=== PATIENT | female | born 1945 | race Caucasian/White ===

== ENCOUNTER 2023-07-20 13:21 | Outpatient (AMB) | payer MEDICARE, BC, SELFPAY ==
--- NOTE | 2023-07-20 13:29 | MHC.OFFVIS ---
Intake Vital Signs 07/20/23 13:30 Height 5 ft 1.5 in Weight 130 lb BMI 24.2 Pulse 92 Pulse Source Pulse Oximeter Pulse Oximetry (%) 93 Oxygen Delivery Method Room Air Intake Visit Reasons: copd Blood Donor Unit Assistant Required: No Allergies fluticasone [From Advair Diskus] Adverse Reaction (Severe, Verified 07/20/23 13:36) Swelling salmeterol [From Advair Diskus] Adverse Reaction (Severe, Verified 07/20/23 13:36) Swelling simvastatin Adverse Reaction (Severe, Verified 07/20/23 13:32) Dizziness steroids Adverse Reaction (Severe, Uncoded 07/20/23 13:32) Hives HPI HPI Comments History of Present Illness Details The patient is here for pulmonary evaluation. The patient is a 78 year woman with a known history of COPD presenting with worsening respiratory symptoms. Apparently the patient does have extensive emphysema. Last CT scan of the chest was back in May 2023 at [facility]. Will personally review the images. Her emphysema is significant and primarily upper lung zones. Preserving minimally the bases. She did have PFTs back in 2021 which we personally reviewed from [facility] demonstrating severe COPD with an FEV1 of 42% evidence of air trapping and also significant diffusion impairment down to 32% predicted couple years ago. The patient has been Anoro. She seems to have a bad reaction to inhaled steroids per the patient. in therefore, she has been on a long-acting LAMA/LABA, Anoro. She tolerates this well. She also has a nebulizer. She does complaint of cough at times productive in nature. Currently she has not on prednisone. She has a hard time with any activity because of the shortness of breath. Even at rest. On arrival she was saturating 93%. We did taken for 6 minute walk test quickly upon arrival and she did desaturate down to 86% with minimal activity. She was placed on 2 L and with assistance with breathing techniques she was able to maintain a pulse ox of 94% on 2 L continuous. The patient was asking about a portable oxygen concentrator. Although, she is a mouth breather. I did explain to her that she needs to work on her breathing technique breathing through her nose personally breathing and will go ahead and perform a from 7 device trial to see if she qualifies for 1. in the meantime the patient understands that her oxygen requirements are very important and is going to help her overall. The patient also is in need of pulmonary rehabilitation. Will have to request pulmonary function studies will also request a venous gas and then she can follow through with pulmonary rehab at [facility]. We also talked about the fact that she does have a small pulmonary nodules appears to be stable that will need follow-up in the future. she is here with her brother and also mentions that there is although family members with underlying lung disease. She quit smoking back in the early 2 thousands. Not sure about any other fumes or toxins. Still her emphysema is extensive and will be reasonable just to check an alpha-1 antitrypsin deficiency phenotype. Therefore we will go ahead and swab her today for DNA testing. [facility] Medical History (Updated 07/20/23 @ 20:47 by Inderjit Chavez MD) Pulmonary nodule Dyspnea Chronic respiratory failure COPD (chronic obstructive pulmonary disease) Social History (Updated 07/20/23 @ 13:37 by RAGHAVENDRA Oneil) Patient Tobacco Use Status: Former Tobacco user Tobacco use type: Cigarette Years Smoked: 20+ Years Review of Systems Const Denies fever(s), Reports headache(s) and Denies weight loss Eyes Reports no additional complaints ENT Reports headache(s) and Reports nasal discharge Card Denies chest pain, Reports dyspnea and Reports dyspnea on exertion Resp Reports chest congestion, Reports cough, Reports dyspnea, Reports dyspnea on exertion and Reports wheezing GI Reports no additional complaints Musc Reports no additional complaints Skin/Breast Denies rash Neuro Reports headache(s) and Reports memory loss Psych Reports memory loss Long/Lymph Denies lymphadenopathy Aller/Immun Reports wheezing Physical Exam Vital Signs: Last Vital Signs Pulse 92 07/20/23 13:30 Pulse Ox 93 07/20/23 13:30 Oxygen Delivery Method Room Air 07/20/23 13:30 BMI result Body Mass Index 24.2 Const General: comfortable HEENT Head: Yes normocephalic Neck Neck: Yes supple Chest Chest palpation & inspection: normal inspection of the chest Resp Effort & Inspection: normal respiratory effort and prolonged expiratory phase Auscultation: wheezes and diminished lung sounds Cardio Heart sounds: S1 normal heart sound present and S2 normal heart sound present Office Procedures 6 Minute Walk Time:: 14:00 SPO2 % at rest: 95 Pulse at rest: 87 SPO2 % during excercise: 86 Pulse during excercise: 99 SPO2 % after excercise: 97 Pulse after excercise: 90 Distance in yards walked: 200 Abiodun Score: 6 Performance Observations:: Leana walked on level ground without assistance, she walked on room air for 60 yards before her SPO2 decreased to 86%. O2 started at 2 lpm and her SPO2 recovered to 95%, she maintained her SPO2 95-97% for the remainder of the walk on 2 lpm. [id number] - 6 Minute Walk Results Reviewed Results Reviewed: Personally reviewed CTA with extensive emphysema, pulmonary nodule, post op changes PFTs: 2021: severe COPD, severe diffusion impairement Assessment & Plan Assessment & Plan (1) Chronic respiratory failure: Code(s): J96.10 - Chronic respiratory failure, unspecified whether with hypoxia or hypercapnia Qualifiers: Respiratory failure complication: hypoxia Qualified Code(s): J96.11 - Chronic respiratory failure with hypoxia (2) COPD (chronic obstructive pulmonary disease): Code(s): J44.9 - Chronic obstructive pulmonary disease, unspecified Qualifiers: COPD type: emphysema Emphysema type: centrilobular Qualified Code(s): J43.2 - Centrilobular emphysema (3) Dyspnea: Code(s): R06.00 - Dyspnea, unspecified Qualifiers: Dyspnea type: shortness of breath Qualified Code(s): R06.02 - Shortness of breath (4) Pulmonary nodule: Code(s): R91.1 - Solitary pulmonary nodule Plan start oxygen 2L/min with activity and sleep requesting conserving device trial PFTs and blood gas start [place] [facility] [place] Anoro start Azithromycin MWF Consider Daliresp Alpha 1 anti trypsin testing Will need a CT chest 05/2024 F/U 2 months Orders: Orders AMB 6 minute walk Today R06.02 - Shortness of breath Pulmonary Rehab Today J44.9 - Chronic obstructive pulmonary disease, unspecified, J96.10 - Chronic respiratory failure, unspecified whether with hypoxia or hypercapnia PFT pulmonary function test Today J44.9 - Chronic obstructive pulmonary disease, unspecified, J96.10 - Chronic respiratory failure, unspecified whether with hypoxia or hypercapnia Venous Blood Gas Today J44.9 - Chronic obstructive pulmonary disease, unspecified, J96.10 - Chronic respiratory failure, unspecified whether with hypoxia or hypercapnia Medications: New ipratropium bromide administer into each nostril 2 sprays intranasal TID PRN 15 mL 6RF allergy symptoms azithromycin Take 1 tablet on Wednesday/Wednesday/Wednesday 250 mg PO 3XW 28 days 12 tabs 3RF K21.9 - Gastro-esophageal reflux disease without esophagitis Coding Level of Care Code New Pt Level 5 (65861) Diagnoses Chronic respiratory failure with hypoxia J96.11 Respiratory failure complication: hypoxia Centrilobular emphysema J43.2 COPD type: emphysema Emphysema type: centrilobular Shortness of breath R06.02 Dyspnea type: shortness of breath Pulmonary nodule R91.1 CPT Codes Coding ([id number]) Time Spent (min) 50
[2023-07-20 13:30] VITALS: PULSE 92; O2SAT 93; BMI 24.2
[2023-07-20 15:03] VITALS: PULSE 87; O2SAT 95
== END 2023-07-20 14:32 | disposition home or self-care (01) ==
PROVIDERS: PCP Internal Medicine; Referring Provider Internal Medicine; Visit Provider Hospitalist
DX: J44.9 Chronic obstructive pulmonary disease, unspecified (principal)
CPT/HCPCS: 94618; 99204

== ENCOUNTER → 2023-07-20 13:21 | Outpatient (BNVA) | payer MEDICARE, BC, SELFPAY | PROVIDERS: PCP Internal Medicine; Referring Provider Internal Medicine; Visit Provider Hospitalist | DX: J43.2 Centrilobular emphysema (principal); J96.11 Chronic respiratory failure with hypoxia; R91.1 Solitary pulmonary nodule | CPT/HCPCS: 94618; 99202 ==

== ENCOUNTER 2023-07-24 10:28 | Outpatient (REF) | payer MEDICARE, BC, SELFPAY ==
[2023-07-24 10:08] VITALS: PULSE 80; RESP 16; O2SAT 98
--- NOTE | 2023-07-24 13:31 | PFT_ITS ---
Indication: COPD Spirometry [FEV1 to FVC 39%; FEV1 0.67 L; FVC 1.7 L. No significant response to bronchodilators noted. Maximum voluntary ventilation 34% predicted.] Lung Volumes [Lung colleagues could not be achieved due to the fact the patient could not perform the maneuvers] Diffusion Capacity [DLCO 36% predicted] Comparisons [None] Interpretation [There has an obstructive ventilatory defect consistent with severe COPD. No significant response to bronchodilators noted. Severe decrease in the maximum voluntary ventilation secondary to deconditioning. Again, lung volumes could not be achieved. The patient does have a severe diffusion impairment. Clinical correlation warranted.] MTDD
== END 2023-07-24 10:29 | disposition home or self-care (01) ==
LOC: HO.RESP 10:28
PROVIDERS: PCP Internal Medicine; Visit Provider Hospitalist
DX: J44.9 Chronic obstructive pulmonary disease, unspecified (principal); J96.10 Chronic respiratory failure, unspecified whether with hypoxia or hypercapnia
CPT/HCPCS: 94010; 94640; 94727; 94729

== ENCOUNTER → 2023-07-24 13:31 | Outpatient (BNV) | payer MEDICARE, BC, SELFPAY | PROVIDERS: PCP Internal Medicine; Visit Provider Hospitalist | DX: J44.9 Chronic obstructive pulmonary disease, unspecified (principal) | CPT/HCPCS: 94060; 94729 ==

== ENCOUNTER 2023-10-18 13:49 | Outpatient (AMB) | payer MEDICARE, BC, SELFPAY ==
--- NOTE | 2023-10-18 13:55 | MHC.OFFVIS ---
Vital Signs 10/18/23 13:58 Height 5 ft 1 in Weight 133 lb 1 oz BMI 25.1 BP 116/72 Blood Pressure Location Lt brachial Position Sitting Respiration 16 Pulse 86 Pulse Source Pulse Oximeter Pulse Oximetry (%) 98 Oxygen Delivery Method Room Air Intake Visit Reasons: copd Allergies fluticasone [From Advair Diskus] Adverse Reaction (Severe, Verified 10/18/23 13:55) Swelling salmeterol [From Advair Diskus] Adverse Reaction (Severe, Verified 10/18/23 13:55) Swelling simvastatin Adverse Reaction (Severe, Verified 10/18/23 13:55) Dizziness steroids Adverse Reaction (Severe, Uncoded 07/20/23 13:32) Hives HPI Comments Details: The patient is a 78 year woman with a known history of COPD presenting with worsening respiratory symptoms. Apparently the patient does have extensive emphysema. Last CT scan of the chest was back in May 2023 at [facility]. Will personally review the images. Her emphysema is significant and primarily upper lung zones. Preserving minimally the bases. She did have PFTs back in 2021 which we personally reviewed from [facility] demonstrating severe COPD with an FEV1 of 42% evidence of air trapping and also significant diffusion impairment down to 32% predicted couple years ago. The patient has been Anoro. She seems to have a bad reaction to inhaled steroids per the patient. in therefore, she has been on a long-acting LAMA/LABA, Anoro. She tolerates this well. She also has a nebulizer. She does complaint of cough at times productive in nature. Currently she has not on prednisone. She has a hard time with any activity because of the shortness of breath. Even at rest. On arrival she was saturating 93%. We did taken for 6 minute walk test quickly upon arrival and she did desaturate down to 86% with minimal activity. She was placed on 2 L and with assistance with breathing techniques she was able to maintain a pulse ox of 94% on 2 L continuous. The patient was asking about a portable oxygen concentrator. Although, she is a mouth breather. I did explain to her that she needs to work on her breathing technique breathing through her nose personally breathing and will go ahead and perform a from 7 device trial to see if she qualifies for 1. in the meantime the patient understands that her oxygen requirements are very important and is going to help her overall. The patient also is in need of pulmonary rehabilitation. Will have to request pulmonary function studies will also request a venous gas and then she can follow through with pulmonary rehab at [facility]. We also talked about the fact that she does have a small pulmonary nodules appears to be stable that will need follow-up in the future. she is here with her brother and also mentions that there is although family members with underlying lung disease. She quit smoking back in the early 2 thousands. Not sure about any other fumes or toxins. Still her emphysema is extensive and will be reasonable just to check an alpha-1 antitrypsin deficiency phenotype. Therefore we will go ahead and swab her today for DNA testing. 10/18/2023 the patient is here for a pulmonary follow-up visit. She has been struggling with her oxygen. She can not handle the 2 L continuous. She was able to tolerate the conserving device and therefore will go ahead and start her on 2 L pulse with a portable oxygen concentrator. This will provide better portability outside of the home. I will request a portable oxygen concentrator through her [employer] company, [employer]. In addition to that she has been using her Anoro inhaler. She is wondering if there is anything better than that. I did recommend she can stay on the Anoro specially since she has had adverse effects to other inhalers. I do believe that the addition of other medications such as using a nebulizer and or using Daliresp may be helpful for her specially with a component of chronic bronchitis. The patient would like to hold off on the Daliresp but she will start using the nebulizer at least once a day in the afternoons. The patient will be starting pulmonary rehabilitation tomorrow which would be good. [facility] Medical History (Updated 10/18/23 @ 20:55 by Inderjit Chavez MD) Pulmonary nodule Dyspnea Chronic respiratory failure COPD (chronic obstructive pulmonary disease) Social History (Updated 07/20/23 @ 13:37 by RAGHAVENDRA Oneil) Patient Tobacco Use Status: Former Tobacco user Tobacco use type: Cigarette Years Smoked: 20+ Years Review of Systems Const Denies fever(s), Reports headache(s) and Denies weight loss Eyes Reports no additional complaints ENT Reports headache(s) and Reports nasal discharge Card Denies chest pain, Reports dyspnea and Reports dyspnea on exertion Resp Reports chest congestion, Reports cough, Reports dyspnea, Reports dyspnea on exertion and Reports wheezing GI Reports no additional complaints Musc Reports no additional complaints Skin/Breast Denies rash Neuro Reports headache(s) and Reports memory loss Psych Reports memory loss Long/Lymph Denies lymphadenopathy Aller/Immun Reports wheezing Physical Exam Vital Signs: Last Vital Signs Pulse 86 10/18/23 13:58 Resp 16 10/18/23 13:58 BP 116/72 10/18/23 13:58 Pulse Ox 98 10/18/23 13:58 Oxygen Delivery Method Room Air 10/18/23 13:58 BMI result Body Mass Index 25.1 Const General: comfortable HEENT Head: Yes normocephalic Neck Neck: Yes supple Chest Chest palpation & inspection: normal inspection of the chest Resp Effort & Inspection: normal respiratory effort and prolonged expiratory phase Auscultation: no wheezes and diminished lung sounds Cardio Heart sounds: S1 normal heart sound present and S2 normal heart sound present Assessment & Plan Assessment & Plan (1) Chronic respiratory failure: Code(s): J96.10 - Chronic respiratory failure, unspecified whether with hypoxia or hypercapnia Category: Medical Qualifiers: Respiratory failure complication: hypoxia Qualified Code(s): J96.11 - Chronic respiratory failure with hypoxia (2) COPD (chronic obstructive pulmonary disease): Comment: FEV1 0.67L Code(s): J44.9 - Chronic obstructive pulmonary disease, unspecified Category: Medical Qualifiers: COPD type: emphysema Emphysema type: centrilobular Qualified Code(s): J43.2 - Centrilobular emphysema (3) Dyspnea: Code(s): R06.00 - Dyspnea, unspecified Category: Medical Qualifiers: Dyspnea type: shortness of breath Qualified Code(s): R06.02 - Shortness of breath (4) Pulmonary nodule: Code(s): R91.1 - Solitary pulmonary nodule Category: Medical Plan change oxygen 2L/pulse with activity, requesting POC for better portability outside of the home should also use 2L/min while sleeping requesting conserving device trial Bloodgas for the next visit start [place]monary [place] [facility] [place] Anoro nebulizer therapy stopped Azithromycin MWF Consider Daliresp Alpha 1 anti trypsin testing-normal M/M Will need a CT chest 05/2024 F/U 4-6 months Medications: Changed From umeclidinium-vilanterol 62.5-25 mcg/actuation (Anoro Ellipta) 1 ea inhalation DAILY To umeclidinium-vilanterol 62.5-25 mcg/actuation (Anoro Ellipta) 1 ea inhalation DAILY 90 days 3 ea 3RF Coding Level of Care Code Est Pt Level 4 (64709) Diagnoses Chronic respiratory failure with hypoxia J96.11 Respiratory failure complication: hypoxia Centrilobular emphysema J43.2 COPD type: emphysema Emphysema type: centrilobular Shortness of breath R06.02 Dyspnea type: shortness of breath Pulmonary nodule R91.1 Time Spent (min) 18
[2023-10-18 13:58] VITALS: BP 116/72; PULSE 86; RESP 16; O2SAT 98; BMI 25.1
== END 2023-10-18 14:14 | disposition home or self-care (01) ==
PROVIDERS: PCP Internal Medicine; Visit Provider Hospitalist
DX: J43.2 Centrilobular emphysema (principal); J96.11 Chronic respiratory failure with hypoxia; R91.1 Solitary pulmonary nodule
CPT/HCPCS: 99214

== ENCOUNTER → 2023-10-18 13:49 | Outpatient (BNVA) | payer MEDICARE, BC, SELFPAY | PROVIDERS: PCP Internal Medicine; Visit Provider Hospitalist | DX: J43.2 Centrilobular emphysema (principal); J96.11 Chronic respiratory failure with hypoxia; R06.02 Shortness of breath; R91.1 Solitary pulmonary nodule | CPT/HCPCS: 99212 ==

== ENCOUNTER 2024-02-14 13:27 | Outpatient (AMB) | payer MEDICARE, BC, SELFPAY ==
[2024-02-14 13:51] VITALS: PULSE 90; O2SAT 94; BMI 23.8
--- NOTE | 2024-02-14 13:51 | MHC.OFFVIS ---
Vital Signs 02/14/24 13:51 Height 5 ft 1 in Weight 126 lb BMI 23.8 Pulse 90 Pulse Source Pulse Oximeter Pulse Oximetry (%) 94 Oxygen Delivery Method Room Air Intake Visit Reasons: copd Rod Welder Required: No Allergies fluticasone [From Advair Diskus] Adverse Reaction (Severe, Verified 02/14/24 13:53) Swelling salmeterol [From Advair Diskus] Adverse Reaction (Severe, Verified 02/14/24 13:53) Swelling simvastatin Adverse Reaction (Severe, Verified 02/14/24 13:53) Dizziness steroids Adverse Reaction (Severe, Uncoded 02/14/24 13:53) Hives HPI Comments Details: The patient is a 78 year woman with a known history of COPD presenting with worsening respiratory symptoms. Apparently the patient does have extensive emphysema. Last CT scan of the chest was back in May 2023 at [facility]. Will personally review the images. Her emphysema is significant and primarily upper lung zones. Preserving minimally the bases. She did have PFTs back in 2021 which we personally reviewed from [facility] demonstrating severe COPD with an FEV1 of 42% evidence of air trapping and also significant diffusion impairment down to 32% predicted couple years ago. The patient has been Anoro. She seems to have a bad reaction to inhaled steroids per the patient. in therefore, she has been on a long-acting LAMA/LABA, Anoro. She tolerates this well. She also has a nebulizer. She does complaint of cough at times productive in nature. Currently she has not on prednisone. She has a hard time with any activity because of the shortness of breath. Even at rest. On arrival she was saturating 93%. We did taken for 6 minute walk test quickly upon arrival and she did desaturate down to 86% with minimal activity. She was placed on 2 L and with assistance with breathing techniques she was able to maintain a pulse ox of 94% on 2 L continuous. The patient was asking about a portable oxygen concentrator. Although, she is a mouth breather. I did explain to her that she needs to work on her breathing technique breathing through her nose personally breathing and will go ahead and perform a from 7 device trial to see if she qualifies for 1. in the meantime the patient understands that her oxygen requirements are very important and is going to help her overall. The patient also is in need of pulmonary rehabilitation. Will have to request pulmonary function studies will also request a venous gas and then she can follow through with pulmonary rehab at [facility]. We also talked about the fact that she does have a small pulmonary nodules appears to be stable that will need follow-up in the future. she is here with her brother and also mentions that there is although family members with underlying lung disease. She quit smoking back in the early 2 thousands. Not sure about any other fumes or toxins. Still her emphysema is extensive and will be reasonable just to check an alpha-1 antitrypsin deficiency phenotype. Therefore we will go ahead and swab her today for DNA testing. 10/18/2023 the patient is here for a pulmonary follow-up visit. She has been struggling with her oxygen. She can not handle the 2 L continuous. She was able to tolerate the conserving device and therefore will go ahead and start her on 2 L pulse with a portable oxygen concentrator. This will provide better portability outside of the home. I will request a portable oxygen concentrator through her [employer] company, [employer]. In addition to that she has been using her Anoro inhaler. She is wondering if there is anything better than that. I did recommend she can stay on the Anoro specially since she has had adverse effects to other inhalers. I do believe that the addition of other medications such as using a nebulizer and or using Daliresp may be helpful for her specially with a component of chronic bronchitis. The patient would like to hold off on the Daliresp but she will start using the nebulizer at least once a day in the afternoons. The patient will be starting pulmonary rehabilitation tomorrow which would be good. 02/14/2024 the patient is here for a pulmonary follow-up visit. Overall she has been doing well. She is tolerating the Anoro well. She is also using the oxygen with good effect. She does have a portable oxygen concentrator that has been affecting beneficial. She does use it 2 L pulse with activity. The patient now is planning a trip to [place] in 11/07/2024. The family is getting ready. I did give her either in order for her to be able to travel with the [facility]. Although this is in October we can reassess her prior to that trip to make sure that she is still stable. In addition to that she will continue with respiratory therapy. The patient will go ahead and have an overnight oximetry to assess her needs of oxygen while sleeping and also will go ahead and request a blood gas to assess her CO2. The patient also has underlying pulmonary nodules. The last time she had a CT scan back in 06/09/2023. Will go plan to repeat the CT scan sometime in 06/09/2024. [facility] Medical History (Updated 10/18/23 @ 20:55 by Inderjit Chavez MD) Pulmonary nodule Dyspnea Chronic respiratory failure COPD (chronic obstructive pulmonary disease) Social History (Updated 07/20/23 @ 13:37 by RAGHAVENDRA Oneil) Patient Tobacco Use Status: Former Tobacco user Tobacco use type: Cigarette Years Smoked: 20+ Years Review of Systems Const Denies fever(s), Reports headache(s) and Denies weight loss Eyes Reports no additional complaints ENT Reports headache(s) and Reports nasal discharge Card Denies chest pain, Reports dyspnea and Reports dyspnea on exertion Resp Reports chest congestion, Reports cough, Reports dyspnea, Reports dyspnea on exertion and Reports wheezing GI Reports no additional complaints Musc Reports no additional complaints Skin/Breast Denies rash Neuro Reports headache(s) and Reports memory loss Psych Reports memory loss Long/Lymph Denies lymphadenopathy Aller/Immun Reports wheezing Physical Exam Vital Signs: Last Vital Signs Pulse 90 02/14/24 13:51 Pulse Ox 94 02/14/24 13:51 Oxygen Delivery Method Room Air 02/14/24 13:51 BMI result Body Mass Index 23.8 Const General: comfortable HEENT Head: Yes normocephalic Neck Neck: Yes supple Chest Chest palpation & inspection: normal inspection of the chest Resp Effort & Inspection: normal respiratory effort and prolonged expiratory phase Auscultation: no wheezes and diminished lung sounds Cardio Heart sounds: S1 normal heart sound present and S2 normal heart sound present Assessment & Plan Assessment & Plan (1) Chronic respiratory failure: Code(s): J96.10 - Chronic respiratory failure, unspecified whether with hypoxia or hypercapnia Category: Medical Qualifiers: Respiratory failure complication: hypoxia Qualified Code(s): J96.11 - Chronic respiratory failure with hypoxia (2) COPD (chronic obstructive pulmonary disease): Comment: FEV1 0.67L Code(s): J44.9 - Chronic obstructive pulmonary disease, unspecified Category: Medical Qualifiers: COPD type: emphysema Emphysema type: centrilobular Qualified Code(s): J43.2 - Centrilobular emphysema (3) Dyspnea: Code(s): R06.00 - Dyspnea, unspecified Category: Medical Qualifiers: Dyspnea type: shortness of breath Qualified Code(s): R06.02 - Shortness of breath (4) Pulmonary nodule: Code(s): R91.1 - Solitary pulmonary nodule Category: Medical Plan change oxygen 2L/pulse with activity, requesting POC for better portability outside of the home Bloodgas and bloodwork Pulmonary rehab at [facility] [place] [place] continue Anoro nebulizer therapy Consider Daliresp overnight oximetry on RA to assess oxygen needs Will need a CT chest 05/2024 F/U 6-8 months Orders: Orders Overnight Pulse Oximetry Today J43.2 - Centrilobular emphysema Basic Metabolic Panel Today J43.2 - Centrilobular emphysema Venous Blood Gas Today J43.2 - Centrilobular emphysema Complete Blood Count Auto Diff Today J43.2 - Centrilobular emphysema CT chest wo IV con 07/21/24 R91.1 - Solitary pulmonary nodule Medications: Refilled umeclidinium-vilanterol 62.5-25 mcg/actuation (Anoro Ellipta) 1 ea inhalation DAILY 90 days 3 ea 3RF Coding Level of Care Code Est Pt Level 4 (58221) Complex EM visit Add On G2211 Diagnoses Chronic respiratory failure with hypoxia J96.11 Respiratory failure complication: hypoxia Centrilobular emphysema J43.2 COPD type: emphysema Emphysema type: centrilobular Shortness of breath R06.02 Dyspnea type: shortness of breath Pulmonary nodule R91.1 Time Spent (min) 17
== END 2024-02-14 14:09 | disposition home or self-care (01) ==
PROVIDERS: PCP Internal Medicine; Visit Provider Hospitalist
DX: J96.11 Chronic respiratory failure with hypoxia (principal); J43.2 Centrilobular emphysema; R06.02 Shortness of breath; R91.1 Solitary pulmonary nodule
CPT/HCPCS: 99214; G2211

== ENCOUNTER 2024-02-14 13:27 | Outpatient (REF) | payer MEDICARE, BC, SELFPAY ==
[2024-02-14 14:57] LABS: MANUAL DIFF FLAG NO
[2024-02-14 14:58] LABS: Venous Blood Gas Refer to POC result
[2024-02-14 15:01] LABS: Basophils Absolute Auto 0.1 X10*3/uL (0.0-0.2); Basophils Percent Auto 0.7 % (0-2); Eosinophils Absolute Auto 0.1 X10*3/uL (0.0-0.4); Eosinophils Percent Auto 1.3 % (0-4); Hemoglobin 16.3 g/dl (12.0-16.0); Imm Gran Abs Auto 0.05 X10*3/uL (0.00-0.03); Imm Gran Pct Auto 0.6 % (0.0-0.4); Lymphocytes Absolute Auto 2.3 X10*3/uL (1.2-4.9); Lymphocytes Percent Auto 28.1 % (20-40); Mean Corpuscular HGB Conc 34.7 g/dl (31.0-35.0); Mean Corpuscular Hemoglobin 31.2 pg (27.0-33.0); Mean Platelet Volume 9.9 fL (9.4-12.3); Monocytes Absolute Auto 0.4 X10*3/uL (0.1-1.2); Monocytes Percent Auto 5.4 % (2-11); Neutrophils Absolute Auto 5.2 x10*3/uL (2.0-8.3); Neutrophils Percent Auto 63.9 % (45-73); Platelet Count 290 X10*3/uL (160-400); Red Blood Count 5.22 X10*6/uL (4.20-5.50); Red Cell Distribution Width 13.1 % (11.0-16.0); White Blood Count 8.2 X10*3/uL (4.8-10.8)
[2024-02-14 15:36] LABS: Anion Gap 12 (12-20); Blood Urea Nitrogen 17 mg/dL (9-16); Calcium 10.4 mg/dL (8.4-10.2); Carbon Dioxide 29 mmol/L (22-29); Chloride 105 mmol/L (96-108); Estimated Glomerular Filt Rate 56; Glucose Random 100 mg/dL (60-115); Potassium 3.8 mmol/L (3.3-5.1); Sodium 142 mmol/L (135-145)
[2024-02-16 11:49] LABS: VBG Base Excess 5.6 mmol/L; VBG HCO3 31 mmol/L (22-26); VBG pCO2 51 mmHg; VBG pH 7.39 (7.32-7.43); VBG pO2 30 mmHg
== END 2024-02-14 13:28 | disposition home or self-care (01) ==
LOC: HO.LAB 13:27
PROVIDERS: PCP Internal Medicine; Visit Provider Hospitalist
DX: J43.2 Centrilobular emphysema (principal); J96.11 Chronic respiratory failure with hypoxia; R91.1 Solitary pulmonary nodule
CPT/HCPCS: 36415; 80048; 82803; 85025; 99212

== ENCOUNTER 2024-06-27 12:42 | Outpatient (REF) | payer MEDICARE, BC, SELFPAY ==
--- NOTE | ~2024-06-27 | CT_ITS ---
CLINICAL HISTORY: R91.1 - Solitary pulmonary nodule CT chest without contrast Comparison: None Findings: The heart is normal size. Calcification of the coronary vasculature. The visualized thyroid and mediastinum are unremarkable. No evidence of pneumonia or edema. Severe apical predominant emphysema. Curvilinear metallic densities within the right apex, presumably reflecting surgical resection site. 7 mm nodule within the right posterolateral lung base (image 49). Scarring within the anteromedial aspect of the left upper lobe. Visualized portions of the upper abdomen demonstrate calculi within the gallbladder lumen. No acute fractures. IMPRESSION: 1. No acute process. 2. Presumed postsurgical sequelae within the right apex. 3. Right lung base nodule. Follow-up chest CT in 3 months recommended to confirm stability. 4. Coronary artery disease. 5. Cholelithiasis. 6. Emphysema. This document has been electronically signed by: Marcie Galindo MD on 06/28/2024 16:05:49
== END 2024-06-27 12:43 | disposition home or self-care (01) ==
LOC: HO.CT 12:42
PROVIDERS: PCP Internal Medicine; Visit Provider Hospitalist
DX: R91.1 Solitary pulmonary nodule (principal)
CPT/HCPCS: 71250

== ENCOUNTER → 2024-06-27 12:44 | Outpatient (BNV) | payer MEDICARE, BC, SELFPAY | PROVIDERS: PCP Internal Medicine; Visit Provider Radiology Diagnostic Radiology | DX: R91.1 Solitary pulmonary nodule (principal) | CPT/HCPCS: 71250 ==

== ENCOUNTER 2024-10-03 12:46 | Outpatient (AMB) | payer MEDICARE, BC, SELFPAY ==
--- NOTE | 2024-10-03 13:04 | A.OFFVIS_ITS ---
Vital Signs 10/03/24 13:06 Height 5 ft 1 in Weight 131 lb 2.801 oz BMI 24.8 BP 130/78 Blood Pressure Location Rt brachial Position Sitting Pulse 85 Pulse Source Pulse Oximeter Pulse Oximetry (%) 95 Oxygen Delivery Method Room Air Intake Visit Reasons: COPD Cellular Phone Repairer Required: No Accompanied by: Self / Same As Patient Allergies fluticasone [From Advair Diskus] Adverse Reaction (Severe, Verified 10/03/24 13:08) Swelling salmeterol [From Advair Diskus] Adverse Reaction (Severe, Verified 10/03/24 13:08) Swelling simvastatin Adverse Reaction (Severe, Verified 10/03/24 13:08) Dizziness bees Allergy (Severe, Uncoded 10/03/24 13:08) Anaphylaxis steroids Adverse Reaction (Severe, Uncoded 02/14/24 13:53) Hives HPI Comments Details: The patient is a 79 year woman with a known history of COPD presenting with worsening respiratory symptoms. Apparently the patient does have extensive emphysema. Last CT scan of the chest was back in May 2023 at [facility]. Will personally review the images. Her emphysema is significant and primarily upper lung zones. Preserving minimally the bases. She did have PFTs back in 2021 which we personally reviewed from [facility] demonstrating severe COPD with an FEV1 of 42% evidence of air trapping and also significant diffusion impairment down to 32% predicted couple years ago. The patient has been Anoro. She seems to have a bad reaction to inhaled steroids per the patient. in therefore, she has been on a long-acting LAMA/LABA, Anoro. She tolerates this well. She also has a nebulizer. She does complaint of cough at times productive in nature. Currently she has not on prednisone. She has a hard time with any activity because of the shortness of breath. Even at rest. On arrival she was saturating 93%. We did taken for 6 minute walk test quickly upon arrival and she did desaturate down to 86% with minimal activity. She was placed on 2 L and with assistance with breathing techniques she was able to maintain a pulse ox of 94% on 2 L continuous. The patient was asking about a portable oxygen concentrator. Although, she is a mouth breather. I did explain to her that she needs to work on her breathing technique breathing through her nose personally breathing and will go ahead and perform a from 7 device trial to see if she qualifies for 1. in the meantime the patient understands that her oxygen requirements are very important and is going to help her overall. The patient also is in need of pulmonary rehabilitation. Will have to request pulmonary function studies will also request a venous gas and then she can follow through with pulmonary rehab at [facility]. We also talked about the fact that she does have a small pulmonary nodules appears to be stable that will need follow-up in the future. she is here with her brother and also mentions that there is although family members with underlying lung disease. She quit smoking back in the early 2 thousands. Not sure about any other fumes or toxins. Still her emphysema is extensive and will be reasonable just to check an alpha-1 antitrypsin deficiency phenotype. Therefore we will go ahead and swab her today for DNA testing. 10/18/2023 the patient is here for a pulmonary follow-up visit. She has been struggling with her oxygen. She can not handle the 2 L continuous. She was able to tolerate the conserving device and therefore will go ahead and start her on 2 L pulse with a portable oxygen concentrator. This will provide better portability outside of the home. I will request a portable oxygen concentrator through her [employer] company, [employer]. In addition to that she has been using her Anoro inhaler. She is wondering if there is anything better than that. I did recommend she can stay on the Anoro specially since she has had adverse effects to other inhalers. I do believe that the addition of other medications such as using a nebulizer and or using Daliresp may be helpful for her specially with a component of chronic bronchitis. The patient would like to hold off on the Daliresp but she will start using the nebulizer at least once a day in the afternoons. The patient will be starting pulmonary rehabilitation tomorrow which would be good. 02/14/2024 the patient is here for a pulmonary follow-up visit. Overall she has been doing well. She is tolerating the Anoro well. She is also using the oxygen with good effect. She does have a portable oxygen concentrator that has been affecting beneficial. She does use it 2 L pulse with activity. The patient now is planning a trip to [place] in 11/07/2024. The family is getting ready. I did give her either in order for her to be able to travel with the POC. Although this is in October we can reassess her prior to that trip to make sure that she is still stable. In addition to that she will continue with respiratory therapy. The patient will go ahead and have an overnight oximetry to assess her needs of oxygen while sleeping and also will go ahead and request a blood gas to assess her CO2. The patient also has underlying pulmonary nodules. The last time she had a CT scan back in 06/09/2023. Will go plan to repeat the CT scan sometime in 06/09/2024. 10/03/2024 the patient is here for a pulmonary follow-up visit. Overall she is doing well. She does complaint of dyspnea on exertion with minimal activity. She does use her oxygen when she is out of the house. Sometimes when she is doing things in the house she does get short of breath. In part does because of air trapping. We did talk about the importance of pursed lip breathing. She needs to monitor her oxygen. For the most part she states that when she is sitting she is about 90-95%. Today when she came into the office she was 95%. We did look at her CT scan of the chest that she had in June 2024 which was personally by me. She does have extensive emphysema primarily in the upper lung zones in addition to her postoperative changes on the right side. She does have any regular looking pulmonary nodule in the right lower lobe which are measure around 6-7 mm in size. Therefore, will go ahead and repeat the CAT scan 6 months from then. And will follow-up after that. As far as medications he is on the Anoro inhaler which seems to be effective. She had a bad reaction to the inhaled cortical steroids. We did talk about alternatives including Daliresp, Ohtuvayre and also theophylline. She would like to continue her current medications as prescribed. She will read up on the other medications and see if she wants to try them. Will follow-up after her CAT scan if he has any issues prior to that she will coughing earlier assessment. [facility] Medical History (Updated 10/18/23 @ 20:55 by Inderjit Chavez MD) Pulmonary nodule Dyspnea Chronic respiratory failure COPD (chronic obstructive pulmonary disease) Social History Patient Tobacco Use Status: Former Tobacco user Tobacco use type: Cigarette Years Smoked: 20+ Years Review of Systems Const Denies chills, Denies daytime sleepiness, Denies fatigue, Denies fever(s), Denies poor appetite, Denies snoring, Denies stops breathing during sleep, Denies weakness, Denies weight gain and Denies weight loss Eyes Denies loss of vision ENT Denies dizziness and Denies hearing loss Card Denies chest pain, Denies irregular heart rhythm, Denies claudication, Denies leg edema, Denies lightheadedness, Denies palpitations, Denies dyspnea on exertion and Denies orthopnea Resp Denies cough, Denies excessive phlegm production, Denies dyspnea on exertion, Denies snoring and Denies wheezing GI Denies abdominal pain, Denies hematochezia, Denies change in bowel habits, Denies nausea and Denies vomiting Denies urinary frequency and Denies dysuria Musc Denies arthralgias, Denies muscle weakness, Denies numbness and Denies other Skin/Breast Denies nail changes and Denies rash Neuro Denies Abnormal speech present, Denies dizziness, Denies loss of vision, Denies memory loss, Denies numbness and Denies weakness Psych Denies depression and Denies memory loss Endo Denies fatigue and Denies palpitations Long/Lymph Denies easy bruising Aller/Immun Denies wheezing Physical Exam Vital Signs: Last Vital Signs Pulse 85 10/03/24 13:06 BP 130/78 10/03/24 13:06 Pulse Ox 95 10/03/24 13:06 Oxygen Delivery Method Room Air 10/03/24 13:06 BMI result Body Mass Index 24.8 Const General: comfortable HEENT Head: Yes normocephalic Neck Neck: Yes supple Chest Chest palpation & inspection: normal inspection of the chest Resp Effort & Inspection: normal respiratory effort and prolonged expiratory phase Auscultation: no wheezes and diminished lung sounds Cardio Heart sounds: S1 normal heart sound present and S2 normal heart sound present Neuro Speech: No Abnormal speech present Assessment & Plan Assessment & Plan (1) Chronic respiratory failure: Code(s): J96.10 - Chronic respiratory failure, unspecified whether with hypoxia or hypercapnia Category: Medical Qualifiers: Respiratory failure complication: hypoxia Qualified Code(s): J96.11 - Chronic respiratory failure with hypoxia (2) COPD (chronic obstructive pulmonary disease): Comment: FEV1 0.67L Code(s): J44.9 - Chronic obstructive pulmonary disease, unspecified Category: Medical Qualifiers: COPD type: emphysema Emphysema type: centrilobular Qualified Code(s): J43.2 - Centrilobular emphysema (3) Dyspnea: Code(s): R06.00 - Dyspnea, unspecified Category: Medical Qualifiers: Dyspnea type: shortness of breath Qualified Code(s): R06.02 - Shortness of breath (4) Pulmonary nodule: Code(s): R91.1 - Solitary pulmonary nodule Category: Medical Plan change oxygen 2L/pulse with activity, POC for better portability outside of the home continue Anoro nebulizer therapy Consider Daliresp versus Ohtuvayre Consider Thephyline overnight oximetry on RA to assess oxygen needs, pt reluctant to use oxygen while sleeping CT chest 6 months from her last one F/U 4 months Orders: Orders CT chest wo IV con 01/08/25 R91.1 - Solitary pulmonary nodule Coding Level of Care Code Est Pt Level 4 (17073) Complex EM visit Add On G2211 Diagnoses Chronic respiratory failure with hypoxia J96.11 Respiratory failure complication: hypoxia Centrilobular emphysema J43.2 COPD type: emphysema Emphysema type: centrilobular Shortness of breath R06.02 Dyspnea type: shortness of breath Pulmonary nodule R91.1 Time Spent (min) 17
[2024-10-03 13:06] VITALS: BP 130/78; PULSE 85; O2SAT 95; BMI 24.8
--- OUTSIDE RECORDS SUMMARY | 2024-10-03 15:35 | XMS_ITS | Patient Health Record ---
Author Organization [employer] [facility] Address [address] [place] [address] Care Team Providers Care Hand Binder Cutter Name Role Phone DERREK BAUTISTA M.D. Primary Care Provider Fani Galeano Unavailable [phone] Allergies Allergen (clinical drug ingredient) Drug/Non Drug Allergy documented on EMR Reaction Allergy Type Onset Date Status Bee Venom (uncoded) Unknown Allergy Active PREDNISONE CAUSED EYE PROBLEMS/ WGT GAIN Drug Allergy Active Reason For Referral No Information Medications Medication SIG (Take, Route, Frequency, Duration) Notes Start Date End Date Status Calcium 1 ORAL daily for -3 [facility] 03/13/2013 Active Multivitamins 1 ORAL daily for -3 [facility] 03/13/2013 Active Spiriva HandiHaler 18 MCG 1 Inhalation d aily for -3 [facility] 03/13/2013 Active ProAir HFA 108 (90 Base) MCG/ACT 2 puffs as needed Inhalation every 4 hrs Active Vitamin D 1000 UNIT 1 tablet Orally Once a day Active Problems Problem Type SNOMED Code ICD Code Onset Dates Problem Status W/U Status Risk Notes Problem Asthma (disorder) (679307590) Asthma, unspecified, unspecified status (493.90) Active confirmed Major Problem Menopausal symptom (34049248) Symptomatic menopausal or female climacteric states (627.2) Active confirmed Major Problem Gynecological examination normal (819798351674999) Routine gynecological examination (V72.31) Active confirmed Major Problem Screening for malignant neoplasm of colon (412190291) Special screening for malignant neoplasms, colon (V76.51) Active confirmed Major Plan Of Treatment No Information Insurance Providers Payer Name Payer Address Payer Phone Subscriber Number Group Number Insured Name Patient Relationship to Insured Coverage Start Date Coverage End Date MEDICARE [address] [employer] [id number] [phone] [id number] SHALONDADANIELLYLY Stahl Self - patient is the insured BC[employer] OF [facility] [address] [place] [address] [phone] [id number] NIX Self - patient is the insured Medical (General) History Medical History History ICD Code Other asthma J45.998 Menopausal and female climacteric states N95.1 Pneumothorax 512 Surgical History Surgery Date(Month/Year) Right Lung Surgery Tonsillectomy Hospitalization History Reason Date(Month/Year) 2 [facility]aginal Deliveries See Surgical Hx
== END 2024-10-03 13:41 | disposition home or self-care (01) ==
LOC: HO.HPS 12:46
PROVIDERS: PCP Internal Medicine; Visit Provider Hospitalist
DX: J96.11 Chronic respiratory failure with hypoxia (principal); J43.2 Centrilobular emphysema; R91.1 Solitary pulmonary nodule
CPT/HCPCS: 99214; G2211

== ENCOUNTER → 2024-10-03 12:46 | Outpatient (BNVA) | payer MEDICARE, BC, SELFPAY | PROVIDERS: PCP Internal Medicine; Visit Provider Hospitalist | DX: J43.2 Centrilobular emphysema (principal); J96.11 Chronic respiratory failure with hypoxia; R91.1 Solitary pulmonary nodule; Z99.81 Dependence on supplemental oxygen; Z87.891 Personal history of nicotine dependence; Z79.899 Other long term (current) drug therapy | CPT/HCPCS: 99212 ==

== ENCOUNTER 2025-01-04 12:34 | Outpatient (REF) | payer MEDICARE, BC, SELFPAY ==
--- NOTE | ~2025-01-04 | CT_ITS ---
CLINICAL HISTORY: R91.1 - Solitary pulmonary nodule CT chest without IV contrast. COMPARISON: CT chest dated 06/27/24 at 12:50 EST FINDINGS: Visualized thyroid is unremarkable. No supraclavicular or axillary lymphadenopathy. Ascending aorta and main pulmonary artery are normal in caliber. Coronary artery calcifications present within the LAD. Aortic annular calcifications. No pericardial effusion. Normal esophagus. No mediastinal lymphadenopathy. Cholelithiasis present within the contracted gallbladder. No pericholecystic inflammatory changes. Right renal cystic lesion measuring 1.1 cm. Splenic granulomas present. Small splenule present. No pleural effusion. Minimal atelectasis versus scarring along the posterior right lung base. Advanced apically predominant emphysema. Likely surgical site of the left lung apex. Trachea and central airways are clear. Mild bronchial wall thickening. No bronchiectasis. Few areas of mucoid impaction present within the left lower lobe. Right lower lobe 6 mm pulmonary nodule (series 5, image 122), stable from prior imaging. No new or growing pulmonary nodule. IMPRESSION: 1. No acute intrathoracic findings. 2. Stable right lower lobe 6 mm pulmonary nodule. Recommend additional follow-up imaging in 12 months. 3. Advanced emphysema with bronchial wall thickening consistent with smoking related lung injury. 4. Cholelithiasis. No stigmata of cholecystitis. 5. Coronary artery atherosclerosis. This document has been electronically signed by: Joby Gómez MD on 01/04/2025 15:31:35
--- OUTSIDE RECORDS SUMMARY | 2025-01-04 13:00 | XMS_ITS | Encounter Summary ---
Author Organization [facility] Address [address] [place] [address] Care Team Providers Care Vegetable Canner Name Role Phone Physician, Pcp Unknown Primary Care Provider Charley vailable Encounter Details Date Type Department Care Team (Late st Contact Info) Description 12/05/2024 Lab Requisition [facility] - Main Lab [address] [facility] [place] [address] Marcelina Aguirre PA [address] [place] [address] Benign essential microscopic hematuria Social History Tobacco Use Types Packs/Day Years Used Date Smoking Tobacco: Never Assessed Comments Unknown Sex and Gender Information Value Date Recorded Sex Assigned at Not on file Legal Sex Female 1:57 PM EDT Gender Identity Not on file Sexual Orientation Not on file documented as of this encounter Plan of Treatment Not on file documented as of this encounter Procedures Procedure Name Priority Date/Time Associated Diagnosis Comments AP OUTSIDE CONSULT Routine 11/27/2024 12 :00 AM EDT Benign essential microscopic hematuria documented in this encounter Results * Anatomic pathology outside consult (11/27/2024 12:00 AM EDT) Final Diagnosis A. Urine, Voided, ([id number]): Negative for high grade urothelial carcinoma. Results of UroVysion fluorescence in situ hybridization (FISH) testing: CEP3: Normal CEP7: Normal CEP17: Normal LSI 9p21: Normal Interpretation: Normal profile Controls stained appropriately. Note: The results are intended as a screening device and should be interpreted in association with other clinical and pathological findings. 12/15/2024 9:38 AM EDT [facility] Clinical Information Benign essential microscopic hematuria R31.1 Urine Cytology/FISH (now) 12/15/2024 9:38 AM EDT [facility] LAB Gross Description A. Urine, Voided, [id number]: Received one ThinPrep slide for cytology and one ThinPrep slide for UroVysion FISH 12/15/2024 9:38 AM EDT [facility] LAB Disclaimer Unless otherwise specified, all tissue is 10% NB formalin fixed and paraffin embedded. Technical pathology services provided by [facility] at [address] [facility] [address], [place] [address] (CLIA #[id number]/Shavonne Anglin MD, Physicist Cryogenics) 12/15/2024 9:38 AM EDT [facility] LAB Tissue Urine specimen from urethra / Unknown 11/27/2024 12/05/2024 2:14 PM EDT us Marcelina BEAL LAB PATHOLOGY ORDERABLES Final Result [facility] [address] [place] [address], documented in this encounter Visit Diagnoses Diagnosis Benign essential microscopic hematuria documented in this encounter Care Teams Vegetable Canner Relationship Specialty Start Date End Date Physician, Pcp Unknown PCP - General 12/05/24 documented as of this encounter
--- OUTSIDE RECORDS SUMMARY | 2025-01-04 13:00 | XMS_ITS | Patient Health Record ---
Author Organization [facility] Address [address] [facility] [address] [place] [address] Care Team Providers Care Die Sinking Machine Operator Name Role Phone DERREK BAUTISTA M.D. Primary Care Provider Fani Galeano Unavailable [phone] Allergies Allergen (clinical drug ingredient) Drug/Non Drug Allergy documented on EMR Reaction Allergy Type Onset Date Status Bee Venom (uncoded) Unknown Allergy Active PREDNISONE CAUSED EYE PROBLEMS/ WGT GAIN Drug Allergy Active Reason For Referral No Information Medications Medication SIG (Take, Route, Frequency, Duration) Notes Start Date End Date Status Calcium 1 ORAL daily; Durati on: -3 [facility]- 03/13/2013 Active Multivitamins 1 ORAL daily; Durati on: -3 [facility]- 03/13/2013 Active Spiriva HandiHaler 18 MCG 1 Inhalation d aily; Duration: -3 [facility] 03/13/2013 Active ProAir HFA 108 (90 Base) MCG/ACT 2 puffs as needed Inhalation every 4 hrs Active Vitamin D 1000 UNIT 1 tablet Orally Once a day Active Problems Problem Type SNOMED Code ICD Code Onset Dates Problem Status W/U Status Risk Notes Problem Asthma (disorder) (754656046) Asthma, unspecified, unspecified status (493.90) Active confirmed Major Problem Menopausal symptom (67774520) Symptomatic menopausal or female climacteric states (627.2) Active confirmed Major Problem Gynecological examination normal (573878896139291) Routine gynecological examination (V72.31) Active confirmed Major Problem Screening for malignant neoplasm of colon (564672204) Special screening for malignant neoplasms, colon (V76.51) Active confirmed Major Plan Of Treatment No Information Insurance Providers Payer Name Payer Address Payer Phone Subscriber Number Group Number Insured Name Patient Relationship to Insured Coverage Start Date Coverage End Date MEDICARE [address] MER URIBE [id number] LYLY NIX Self - patient is the insured BCBS OF [facility] [address] [place] [phone] [id number] LYLY NIX Self - patient is the insured Medical (General) History Medical History History ICD Code Other asthma J45.998 Menopausal and female climacteric states N95.1 Pneumothorax 512 Surgical History Surgery Date(Month/Year) Right Lung Surgery Tonsillectomy Hospitalization History Reason Date(Month/Year) 2 Vaginal Deliveries See Surgical Hx
== END 2025-01-04 12:35 | disposition home or self-care (01) ==
LOC: HO.CT 12:34
PROVIDERS: PCP Internal Medicine; Visit Provider Hospitalist
DX: R91.1 Solitary pulmonary nodule (principal)
CPT/HCPCS: 71250

== ENCOUNTER → 2025-01-04 12:35 | Outpatient (BNV) | payer MEDICARE, BC, SELFPAY | PROVIDERS: PCP Internal Medicine; Visit Provider Radiology Diagnostic Radiology | DX: J43.8 Other emphysema (principal); I25.10 Atherosclerotic heart disease of native coronary artery without angina pectoris; R91.1 Solitary pulmonary nodule; K80.20 Calculus of gallbladder without cholecystitis without obstruction | CPT/HCPCS: 71250 ==

== ENCOUNTER 2025-02-05 12:48 | Outpatient (AMB) | payer MEDICARE, BC, SELFPAY ==
--- NOTE | 2025-02-05 12:52 | MHC.OFFVIS ---
Vital Signs 02/05/25 12:53 Height 5 ft 1 in Weight 127 lb 13.89 oz BMI 24.2 BP 132/74 Blood Pressure Location Lt brachial Position Sitting Pulse 88 Pulse Source Pulse Oximeter Pulse Oximetry (%) 96 Oxygen Delivery Method Room Air Intake Visit Reasons: COPD Burr Bench Hand Required: No Allergies fluticasone (From Advair Diskus) Adverse Reaction (Severe, Verified 02/05/25 12:56) Swelling salmeterol (From Advair Diskus) Adverse Reaction (Severe, Verified 02/05/25 12:56) Swelling simvastatin Adverse Reaction (Severe, Verified 02/05/25 12:56) Dizziness bees Allergy (Severe, Uncoded 10/03/24 13:08) Anaphylaxis steroids Adverse Reaction (Severe, Uncoded 02/14/24 13:53) Hives HPI Comments Details: The patient is a 79 year woman with a known history of COPD presenting with worsening respiratory symptoms. Apparently the patient does have extensive emphysema. Last CT scan of the chest was back in May 2023 at [facility]. Will personally review the images. Her emphysema is significant and primarily upper lung zones. Preserving minimally the bases. She did have PFTs back in 2021 which we personally reviewed from [facility] demonstrating severe COPD with an FEV1 of 42% evidence of air trapping and also significant diffusion impairment down to 32% predicted couple years ago. The patient has been Anoro. She seems to have a bad reaction to inhaled steroids per the patient. in therefore, she has been on a long-acting LAMA/LABA, Anoro. She tolerates this well. She also has a nebulizer. She does complaint of cough at times productive in nature. Currently she has not on prednisone. She has a hard time with any activity because of the shortness of breath. Even at rest. On arrival she was saturating 93%. We did taken for 6 minute walk test quickly upon arrival and she did desaturate down to 86% with minimal activity. She was placed on 2 L and with assistance with breathing techniques she was able to maintain a pulse ox of 94% on 2 L continuous. The patient was asking about a portable oxygen concentrator. Although, she is a mouth breather. I did explain to her that she needs to work on her breathing technique breathing through her nose personally breathing and will go ahead and perform a from 7 device trial to see if she qualifies for 1. in the meantime the patient understands that her oxygen requirements are very important and is going to help her overall. The patient also is in need of pulmonary rehabilitation. Will have to request pulmonary function studies will also request a venous gas and then she can follow through with pulmonary rehab at [facility]. We also talked about the fact that she does have a small pulmonary nodules appears to be stable that will need follow-up in the future. she is here with her brother and also mentions that there is although family members with underlying lung disease. She quit smoking back in the early 2 thousands. Not sure about any other fumes or toxins. Still her emphysema is extensive and will be reasonable just to check an alpha-1 antitrypsin deficiency phenotype. Therefore we will go ahead and swab her today for DNA testing. 10/18/2023 the patient is here for a pulmonary follow-up visit. She has been struggling with her oxygen. She can not handle the 2 L continuous. She was able to tolerate the conserving device and therefore will go ahead and start her on 2 L pulse with a portable oxygen concentrator. This will provide better portability outside of the home. I will request a portable oxygen concentrator through her [employer], [employer]. In addition to that she has been using her Anoro inhaler. She is wondering if there is anything better than that. I did recommend she can stay on the Anoro specially since she has had adverse effects to other inhalers. I do believe that the addition of other medications such as using a nebulizer and or using Daliresp may be helpful for her specially with a component of chronic bronchitis. The patient would like to hold off on the Daliresp but she will start using the nebulizer at least once a day in the afternoons. The patient will be starting pulmonary rehabilitation tomorrow which would be good. 02/14/2024 the patient is here for a pulmonary follow-up visit. Overall she has been doing well. She is tolerating the Anoro well. She is also using the oxygen with good effect. She does have a portable oxygen concentrator that has been affecting beneficial. She does use it 2 L pulse with activity. The patient now is planning a trip to [place] in 11/07/2024. The family is getting ready. I did give her either in order for her to be able to travel with the POC. Although this is in October we can reassess her prior to that trip to make sure that she is still stable. In addition to that she will continue with respiratory therapy. The patient will go ahead and have an overnight oximetry to assess her needs of oxygen while sleeping and also will go ahead and request a blood gas to assess her CO2. The patient also has underlying pulmonary nodules. The last time she had a CT scan back in 06/09/2023. Will go plan to repeat the CT scan sometime in 06/09/2024. 10/03/2024 the patient is here for a pulmonary follow-up visit. Overall she is doing well. She does complaint of dyspnea on exertion with minimal activity. She does use her oxygen when she is out of the house. Sometimes when she is doing things in the house she does get short of breath. In part does because of air trapping. We did talk about the importance of pursed lip breathing. She needs to monitor her oxygen. For the most part she states that when she is sitting she is about 90-95%. Today when she came into the office she was 95%. We did look at her CT scan of the chest that she had in June 2024 which was personally by me. She does have extensive emphysema primarily in the upper lung zones in addition to her postoperative changes on the right side. She does have any regular looking pulmonary nodule in the right lower lobe which are measure around 6-7 mm in size. Therefore, will go ahead and repeat the CAT scan 6 months from then. And will follow-up after that. As far as medications he is on the Anoro inhaler which seems to be effective. She had a bad reaction to the inhaled cortical steroids. We did talk about alternatives including Daliresp, Ohtuvayre and also theophylline. She would like to continue her current medications as prescribed. She will read up on the other medications and see if she wants to try them. Will follow-up after her CAT scan if he has any issues prior to that she will coughing earlier assessment. 02/05/2025 the patient is here for pulmonary follow-up visit. She continues to have dyspnea on exertion. The patient does have her oxygen with her but she does not use it all the time. I did reach educate her about the importance of her oxygen specially with significant emphysema and poor gas exchange. The patient understands that she needs use the oxygen with activity. She does have a portable oxygen concentrator for better portability. At home she also needs to use the oxygen with sleep at 2 L. The patient did have an overnight oximetry demonstrating hypoxia down to 78%. And she spent more than 20 minutes below 88%. Therefore she understands that using the oxygen will be helpful. She is here was family and they are mentioning that her memory is been slightly off. Therefore she understands that she needs use the oxygen not only with activity but also with sleep. The patient also had a CT scan of the chest that was personally by me. The patient does have extensive emphysema and also bolus disease. And this is accounting for his difficulty breathing. The patient already participating in pulmonary rehabilitation. I did give her information about online pulmonary rehabilitation. She has been on the Anoro inhaler which is helpful. She does have a chronic bronchitis issue. Although she does not seem to be tolerate any kind of steroids unless his acute flare-up. Therefore will go ahead and start her on Daliresp. Daliresp does have some potential side effects as GI adverse effects but the patient is aware and she is going to slowly increase with the lowest dose of 250 mcg and increase slowly to the therapeutic dose of having a mcg. We also talked about the potential of Ohtuvayre, if she does not tolerate the Daliresp then the nebulized formulation would also be a very good option for her. Using a small dose of inhaled corticosteroids may also be effective although the patient is declining this at this time. Will plan to follow-up in 3-4 months if she has any issues prior to this she will call for an earlier assessment. [facility] Medical History (Updated 10/18/23 @ 20:55 by Inderjit Chavez MD) Pulmonary nodule Dyspnea Chronic respiratory failure COPD (chronic obstructive pulmonary disease) Social History Patient Tobacco Use Status: Former Tobacco user Tobacco use type: Cigarette Years Smoked: 20+ Years Review of Systems Const Denies chills, Denies daytime sleepiness, Denies fatigue, Denies fever(s), Denies poor appetite, Denies snoring, Denies stops breathing during sleep, Denies weakness, Denies weight gain and Denies weight loss Eyes Denies loss of vision ENT Denies dizziness and Denies hearing loss Card Denies chest pain, Denies irregular heart rhythm, Denies claudication, Denies leg edema, Denies lightheadedness, Denies palpitations, Reports dyspnea on exertion and Denies orthopnea Resp Reports chest congestion, Reports cough, Denies excessive phlegm production, Reports dyspnea on exertion, Denies snoring and Denies wheezing GI Denies abdominal pain, Denies hematochezia, Denies change in bowel habits, Denies nausea and Denies vomiting Denies urinary frequency and Denies dysuria Musc Denies arthralgias, Denies muscle weakness, Denies numbness and Denies other Skin/Breast Denies nail changes and Denies rash Neuro Denies Abnormal speech present, Denies dizziness, Denies loss of vision, Denies memory loss, Denies numbness and Denies weakness Psych Denies depression and Denies memory loss Endo Denies fatigue and Denies palpitations Long/Lymph Denies easy bruising Aller/Immun Denies wheezing Physical Exam Vital Signs: Last Vital Signs Pulse 88 02/05/25 12:53 BP 132/74 02/05/25 12:53 Pulse Ox 96 02/05/25 12:53 Oxygen Delivery Method Room Air 02/05/25 12:53 BMI result Body Mass Index 24.2 Const General: comfortable HEENT Head: Yes normocephalic Neck Neck: Yes supple Chest Chest palpation & inspection: normal inspection of the chest Resp Effort & Inspection: normal respiratory effort and prolonged expiratory phase Auscultation: no wheezes and diminished lung sounds Cardio Heart sounds: S1 normal heart sound present and S2 normal heart sound present Neuro Speech: No Abnormal speech present Assessment & Plan Assessment & Plan (1) Chronic respiratory failure: Code(s): J96.10 - Chronic respiratory failure, unspecified whether with hypoxia or hypercapnia Category: Medical Qualifiers: Respiratory failure complication: hypoxia Qualified Code(s): J96.11 - Chronic respiratory failure with hypoxia (2) COPD (chronic obstructive pulmonary disease): Comment: FEV1 0.67L Code(s): J44.9 - Chronic obstructive pulmonary disease, unspecified Category: Medical Qualifiers: COPD type: emphysema Emphysema type: centrilobular Qualified Code(s): J43.2 - Centrilobular emphysema (3) Dyspnea: Code(s): R06.00 - Dyspnea, unspecified Category: Medical Qualifiers: Dyspnea type: shortness of breath Qualified Code(s): R06.02 - Shortness of breath (4) Pulmonary nodule: Code(s): R91.1 - Solitary pulmonary nodule Category: Medical Plan continue oxygen 2L/pulse with activity, POC for better portability outside of the home Start oxygen 2L/min while sleeping continue Anoro nebulizer therapy start Daliresp 250mg consider Ohtuvayre CT chest with extensive emphysema F/U 3-4 months Medications: New roflumilast (Daliresp) 250 mcg PO DAILY 30 tabs 11RF 30 days J44.9 - Chronic obstructive pulmonary disease, unspecified Coding Level of Care Code Est Pt Level 4 (95268) Complex EM visit Add On G2211 Diagnoses Chronic respiratory failure with hypoxia J96.11 Respiratory failure complication: hypoxia Centrilobular emphysema J43.2 COPD type: emphysema Emphysema type: centrilobular Shortness of breath R06.02 Dyspnea type: shortness of breath Pulmonary nodule R91.1 Time Spent (min) 25
[2025-02-05 12:53] VITALS: BP 132/74; PULSE 88; O2SAT 96; BMI 24.2
--- OUTSIDE RECORDS SUMMARY | 2025-02-05 13:41 | XMS_ITS | Encounter Summary ---
Author Organization [facility] Address [address] [place] [address] Care Team Providers Care Manager Bridge Name Role Phone Physician, Pcp Unknown Primary Care Provider Charley vailable Encounter Details Date Type Department Care Team (Late st Contact Info) Description 12/05/2024 Lab Requisition [facility] - Main Lab [address] [facility] [place] [address] Marcelina Aguirre PA [address] [place] [address] Benign essential microscopic hematuria Social History Tobacco [...] AM EDT) Final Diagnosis A. Urine, Voided, ([id number]): Negative for high grade urothelial carcinoma. Results of UroVysion fluorescence in situ hybridization (FISH) testing: CEP3: Normal CEP7: Normal CEP17: Normal LSI 9p21: Normal Interpretation: Normal profile Controls stained appropriately. Note: The results are intended as a screening device and should be interpreted in association with other clinical and pathological findings. 12/15/2024 9:38 AM EDT [email or web address] HOSPITAL LAB Clinical Information Benign essential microscopic hematuria R31.1 Urine Cytology/FISH (now) 12/15/2024 9:38 AM EDT [facility] Gross Description A. Urine, Voided, [id number]: Received one ThinPrep slide for cytology and one ThinPrep slide for UroVysion FISH 12/15/2024 9:38 AM EDT [facility] Disclaimer Unless otherwise specified, all tissue is 10% NB formalin fixed and paraffin embedded. Technical pathology services provided by [facility] at [address] [facility] [address], [place] [address] (CLIA #[id number]/Shavonne Anglin MD, Silk Screen Printer) 12/15/2024 9:38 AM EDT [facility] Tissue Urine specimen from urethra / Unknown 11/27/2024 12/05/2024 2:14 PM EDT us Marcelina BEAL LAB PATHOLOGY ORDERABLES Final Result [facility] [address] [place] [address], documented in this encounter Visit Diagnoses Diagnosis Benign essential microscopic hematuria documented in this encounter Care Teams Manager Bridge Relationship Specialty Start Date End Date Physician, Pcp Unknown PCP - General 12/05/24 documented as of this encounter
--- OUTSIDE RECORDS SUMMARY | 2025-02-05 13:41 | XMS_ITS | Patient Health Record ---
Author Organization [employer] [facility] Address [address] [place] [address] Care Team Providers Care Dealership General Manager Name Role Phone DERREK BAUTISTA M.D. Primary Care Provider Fani Galeano Unavailable [phone] Allergies Allergen (clinical drug ingredient) Drug/Non Drug Allergy documented on EMR Reaction Allergy Type Onset Date Status Bee Venom (uncoded) Unknown Allergy Active PREDNISONE CAUSED EYE PROBLEMS/ WGT GAIN Drug Allergy Active Reason For Referral No Information Medications Medication SIG (Take, Route, Frequency, Duration) Notes Start Date End Date Status Calcium 1 ORAL daily; Durati on: -3 [facility] 03/13/2013 Active Multivitamins 1 ORAL daily; Durati on: -3 [facility] 03/13/2013 Active Spiriva HandiHaler 18 MCG 1 Inhalation d aily; Duration: -3 [facility] 03/13/2013 Active ProAir HFA 108 (90 Base) MCG/ACT 2 puffs as needed Inhalation every 4 hrs Active Vitamin D 1000 UNIT 1 tablet Orally Once a day Active Problems Problem Type SNOMED Code ICD Code Onset Dates Problem Status W/U Status Risk Notes Problem Asthma (disorder) (000211388) Asthma, unspecified, unspecified status (493.90) Active confirmed Major Problem Menopausal symptom (58387015) Symptomatic menopausal or female climacteric states (627.2) Active confirmed Major Problem Routine gynecological examination (V72.31) Active confirmed Major Problem Screening for malignant neoplasm of colon (583678906) Special screening for malignant neoplasms, colon (V76.51) Active confirmed Major Plan Of Treatment No Information Insurance Providers Payer Name Payer Address Payer Phone Subscriber Number Group Number Insured Name Patient Relationship to Insured Coverage Start Date Coverage End Date MEDICARE [address] MER [employer] [id number] SHALONDADANIELLYLY Stahl Self - patient is the insured BCBS OF [facility] [address] [place] [address] [id number] 1 LYLY NIX Self - patient is the insured Medical (General) History Medical History History ICD Code Other asthma J45.998 Menopausal and female climacteric states N95.1 Pneumothorax 512 Surgical History Surgery Date(Month/Year) Right Lung Surgery Tonsillectomy Hospitalization History Reason Date(Month/Year) 2 Vaginal Deliveries See Surgical Hx
== END 2025-02-05 13:42 | disposition home or self-care (01) ==
LOC: HO.HPS 12:49
PROVIDERS: PCP Internal Medicine; Visit Provider Hospitalist
DX: J96.11 Chronic respiratory failure with hypoxia (principal); J43.2 Centrilobular emphysema; R06.02 Shortness of breath; R91.1 Solitary pulmonary nodule
CPT/HCPCS: 99214; G2211

== ENCOUNTER → 2025-02-05 12:48 | Outpatient (BNVA) | payer MEDICARE, BC, SELFPAY | PROVIDERS: PCP Internal Medicine; Visit Provider Hospitalist | DX: J43.2 Centrilobular emphysema (principal); J96.11 Chronic respiratory failure with hypoxia; R91.1 Solitary pulmonary nodule | CPT/HCPCS: 99212 ==

== ENCOUNTER 2025-04-26 12:49 | Outpatient (AMB) | payer MEDICARE, BC, SELFPAY ==
--- NOTE | 2025-04-26 13:06 | MHC.OFFVIS ---
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 Apparently the patient does have extensive emphysema. Last CT scan of the chest was back in May 2023 at [facility]. Will personally review the images. Her emphysema is significant and primarily upper lung zones. Preserving minimally the bases. She did have PFTs back in 2021 which we personally reviewed from [facility] demonstrating severe COPD with an FEV1 of 42% evidence of air trapping and also significant diffusion impairment down to 32% predicted couple years ago. The patient has been Anoro. She seems to have a bad reaction to inhaled steroids per the patient. in therefore, she has been on a long-acting LAMA/LABA, Anoro. She tolerates this well. She also has a nebulizer. She does complaint of cough at times productive in nature. Currently she has not on prednisone. She has a hard time with any activity because of the shortness of breath. Even at rest. On arrival she was saturating 93%. We did taken for 6 minute walk test quickly upon arrival and she did desaturate down to 86% with minimal activity. She was placed on 2 L and with assistance with breathing techniques she was able to maintain a pulse ox of 94% on 2 L continuous. The patient was asking about a portable oxygen concentrator. Although, she is a mouth breather. I did explain to her that she needs to work on her breathing technique breathing through her nose personally breathing and will go ahead and perform a from 7 device trial to see if she qualifies for 1. in the meantime the patient understands that her oxygen requirements are very important and is going to help her overall. The patient also is in need of pulmonary rehabilitation. Will have to request pulmonary function studies will also request a venous gas and then she can follow through with pulmonary rehab at [facility]. We also talked about the fact that she does have a small pulmonary nodules appears to be stable that will need follow-up in the future. she is here with her brother and also mentions that there is although family members with underlying lung disease. She quit smoking back in the early 2 thousands. Not sure about any other fumes or toxins. Still her emphysema is extensive and will be reasonable just to check an alpha-1 antitrypsin deficiency phenotype. Therefore we will go ahead and swab her today for DNA testing. 10/18/2023 the patient is here for a pulmonary follow-up visit. She has been struggling with her oxygen. She can not handle the 2 L continuous. She was able to tolerate the conserving device and therefore will go ahead and start her on 2 L pulse with a portable oxygen concentrator. This will provide better portability outside of the home. I will request a portable oxygen concentrator through her [employer] company, [employer]. In addition to that she has been using her Anoro inhaler. She is wondering if there is anything better than that. I did recommend she can stay on the Anoro specially since she has had adverse effects to other inhalers. I do believe that the addition of other medications such as using a nebulizer and or using Daliresp may be helpful for her specially with a component of chronic bronchitis. The patient would like to hold off on the Daliresp but she will start using the nebulizer at least once a day in the afternoons. The patient will be starting pulmonary rehabilitation tomorrow which would be good. 02/14/2024 the patient is here for a pulmonary follow-up visit. Overall she has been doing well. She is tolerating the Anoro well. She is also using the oxygen with good effect. She does have a portable oxygen concentrator that has been affecting beneficial. She does use it 2 L pulse with activity. The patient now is planning a trip to [place] in 11/07/2024. The family is getting ready. I did give her either in order for her to be able to travel with the POC. Although this is in October we can reassess her prior to that trip to make sure that she is still stable. In addition to that she will continue with respiratory therapy. The patient will go ahead and have an overnight oximetry to assess her needs of oxygen while sleeping and also will go ahead and request a blood gas to assess her CO2. The patient also has underlying pulmonary nodules. The last time she had a CT scan back in 06/09/2023. Will go plan to repeat the CT scan sometime in 06/09/2024. 10/03/2024 the patient is here for a pulmonary follow-up visit. Overall she is doing well. She does complaint of dyspnea on exertion with minimal activity. She does use her oxygen when she is out of the house. Sometimes when she is doing things in the house she does get short of breath. In part does because of air trapping. We did talk about the importance of pursed lip breathing. She needs to monitor her oxygen. For the most part she states that when she is sitting she is about 90-95%. Today when she came into the office she was 95%. We did look at her CT scan of the chest that she had in June 2024 which was personally by me. She does have extensive emphysema primarily in the upper lung zones in addition to her postoperative changes on the right side. She does have any regular looking pulmonary nodule in the right lower lobe which are measure around 6-7 mm in size. Therefore, will go ahead and repeat the CAT scan 6 months from then. And will follow-up after that. As far as medications he is on the Anoro inhaler which seems to be effective. She had a bad reaction to the inhaled cortical steroids. We did talk about alternatives including Daliresp, Ohtuvayre and also theophylline. She would like to continue her current medications as prescribed. She will read up on the other medications and see if she wants to try them. Will follow-up after her CAT scan if he has any issues prior to that she will coughing earlier assessment. 02/05/2025 the patient is here for pulmonary follow-up visit. She continues to have dyspnea on exertion. The patient does have her oxygen with her but she does not use it all the time. I did reach educate her about the importance of her oxygen specially with significant emphysema and poor gas exchange. The patient understands that she needs use the oxygen with activity. She does have a portable oxygen concentrator for better portability. At home she also needs to use the oxygen with sleep at 2 L. The patient did have an overnight oximetry demonstrating hypoxia down to 78%. And she spent more than 20 minutes below 88%. Therefore she understands that using the oxygen will be helpful. She is here was family and they are mentioning that her memory is been slightly off. Therefore she understands that she needs use the oxygen not only with activity but also with sleep. The patient also had a CT scan of the chest that was personally by me. The patient does have extensive emphysema and also bolus disease. And this is accounting for his difficulty breathing. The patient already participating in pulmonary rehabilitation. I did give her information about online pulmonary rehabilitation. She has been on the Anoro inhaler which is helpful. She does have a chronic bronchitis issue. Although she does not seem to be tolerate any kind of steroids unless his acute flare-up. Therefore will go ahead and start her on Daliresp. Daliresp does have some potential side effects as GI adverse effects but the patient is aware and she is going to slowly increase with the lowest dose of 250 mcg and increase slowly to the therapeutic dose of having a mcg. We also talked about the potential of Ohtuvayre, if she does not tolerate the Daliresp then the nebulized formulation would also be a very good option for her. Using a small dose of inhaled corticosteroids may also be effective although the patient is declining this at this time. Will plan to follow-up in 3-4 months if she has any issues prior to this she will call for an earlier assessment. 04/26/2025 the patient is here for pulmonary follow-up visit. Overall the patient has been doing well she continues on the Trelegy inhaler. She did not tolerate the Daliresp because of the GI side effects. She had this point would like to hold off any other new medications. She does have a cough at times it is hacky in nature. Nonproductive. She did respond well to the Tessalon Perles I will send her another prescription to the pharmacy. I also did give her a good Rx card that she can use if not covered. In the meantime she did have a CT scan of the chest which we personally reviewed. The patient does have pulmonary nodules. She needs to have another repeat CAT scan sometime in the spring. Will have her get 1 in around October and will follow-up sometime after that. She continues use the oxygen with good effect. She has a POC. This is working well. She can use it with activity. And also she would use it for sleep but she has a hard time keeping it on while sleeping. The patient is otherwise without any other complaints will follow-up sometime in October of 2025. If she has any issues prior to that she can always call for an assessment or further recommendations. [facility] Medical History (Updated 10/18/23 @ 20:55 by Inderjit Chavez MD) Pulmonary nodule Dyspnea Chronic respiratory failure COPD (chronic obstructive pulmonary disease) Social History Patient Tobacco Use Status: Former Tobacco user Tobacco use type: Cigarette Years Smoked: 20+ Years Review of Systems Const Denies chills, Denies daytime sleepiness, Denies fatigue, Denies fever(s), Denies poor appetite, Denies snoring, Denies stops breathing during sleep, Denies weakness, Denies weight gain and Denies weight loss Eyes Denies loss of vision ENT Denies dizziness and Denies hearing loss Card Denies chest pain, Denies irregular heart rhythm, Denies claudication, Denies leg edema, Denies lightheadedness, Denies palpitations, Reports dyspnea on exertion and Denies orthopnea Resp Reports chest congestion, Reports cough, Denies excessive phlegm production, Reports dyspnea on exertion, Denies snoring and Denies wheezing GI Denies abdominal pain, Denies hematochezia, Denies change in bowel habits, Denies nausea and Denies vomiting Denies urinary frequency and Denies dysuria Musc Denies arthralgias, Denies muscle weakness, Denies numbness and Denies other Skin/Breast Denies nail changes and Denies rash Neuro Denies Abnormal speech present, Denies dizziness, Denies loss of vision, Denies memory loss, Denies numbness and Denies weakness Psych Denies depression and Denies memory loss Endo Denies fatigue and Denies palpitations Long/Lymph Denies easy bruising Aller/Immun Denies wheezing Physical Exam Vital Signs: Last Vital Signs Pulse 83 04/26/25 13:07 BP 124/80 04/26/25 13:07 Pulse Ox 95 04/26/25 13:07 Oxygen Delivery Method Room Air 04/26/25 13:07 BMI result Body Mass Index 23.9 Const General: comfortable HEENT Head: Yes normocephalic Neck Neck: Yes supple Chest Chest palpation & inspection: normal inspection of the chest Resp Effort & Inspection: normal respiratory effort and prolonged expiratory phase Auscultation: no wheezes and diminished lung sounds Cardio Heart sounds: S1 normal heart sound present and S2 normal heart sound present Neuro Speech: No Abnormal speech present Assessment & Plan Assessment & Plan (1) Chronic respiratory failure: Code(s): J96.10 - Chronic respiratory failure, unspecified whether with hypoxia or hypercapnia Category: Medical Qualifiers: Respiratory failure complication: hypoxia Qualified Code(s): J96.11 - Chronic respiratory failure with hypoxia (2) COPD (chronic obstructive pulmonary disease): Comment: FEV1 0.67L Code(s): J44.9 - Chronic obstructive pulmonary disease, unspecified Category: Medical Qualifiers: COPD type: emphysema Emphysema type: centrilobular Qualified Code(s): J43.2 - Centrilobular emphysema (3) Dyspnea: Code(s): R06.00 - Dyspnea, unspecified Category: Medical Qualifiers: Dyspnea type: shortness of breath Qualified Code(s): R06.02 - Shortness of breath (4) Pulmonary nodule: Code(s): R91.1 - Solitary pulmonary nodule Category: Medical Plan continue oxygen 2L/pulse with activity, POC for better portability outside of the home oxygen 2L/min while sleeping continue Anoro nebulizer therapy stopped Daliresp 250mg due to side effects consider Ohtuvayre CT chest with extensive emphysema, repeat October 2025 F/U 6-8 months Orders: Orders CT chest wo IV con 10/19/25 R91.1 - Solitary pulmonary nodule Medications: New benzonatate 200 mg PO BID PRN 30 caps 6RF cough 30 days benzonatate 200 mg PO BID PRN 30 caps 0RF cough 30 days Coding Level of Care Code Est Pt Level 4 (20357) Complex EM visit Add On G2211 Diagnoses Chronic respiratory failure with hypoxia J96.11 Respiratory failure complication: hypoxia Centrilobular emphysema J43.2 COPD type: emphysema Emphysema type: centrilobular Shortness of breath R06.02 Dyspnea type: shortness of breath Pulmonary nodule R91.1 Time Spent (min) 17
[2025-04-26 13:07] VITALS: BP 124/80; PULSE 83; O2SAT 95; BMI 23.9
--- OUTSIDE RECORDS SUMMARY | 2025-04-26 15:46 | XMS_ITS | Encounter Summary ---
Author Organization [facility] Address [address] [place] [address] Care Team Providers Care Tubular Riveter Name Role Phone Physician, Pcp Unknown Primary Care Provider Charley vailable Encounter Details Date Type Department Care Team (Late st Contact Info) Description 12/05/2024 Lab Requisition [facility] - Main Lab [address] [facility] [place] [address] Marcelina Aguirre PA [address] [place] [address] Benign essential microscopic hematuria Social History Tobacco [...] AM EDT) Final Diagnosis A. Urine, Voided, ([id number]): Negative for high grade urothelial carcinoma. Results of UroVysion fluorescence in situ hybridization (FISH) testing: CEP3: Normal CEP7: Normal CEP17: Normal LSI 9p21: Normal Interpretation: Normal profile Controls stained appropriately. Note: The results are intended as a screening device and should be interpreted in association with other clinical and pathological findings. 12/15/2024 9:38 AM EDT [facility] Clinical Information Benign essential microscopic hematuria R31.1 Urine Cytology/FISH (now) 12/15/2024 9:38 AM EDT [facility] Gross Description A. Urine, Voided, [id number]: Received one ThinPrep slide for cytology and one ThinPrep slide for UroVysion FISH 12/15/2024 9:38 AM EDT [facility] Disclaimer Unless otherwise specified, all tissue is 10% NB formalin fixed and paraffin embedded. Technical pathology services provided by [facility] at [address], [place] [address] (CLIA #[id number]/Shavonne Anglin MD, Corporate Concierge) 12/15/2024 9:38 AM EDT [facility] Tissue Urine specimen from urethra / Unknown 11/27/2024 12/05/2024 2:14 PM EDT us Marcelina [facility] PATHOLOGY ORDERABLES Final Result [facility] [address] [place] [address], documented in this encounter Visit Diagnoses Diagnosis Benign essential microscopic hematuria documented in this encounter Care Teams Tubular Riveter Relationship Specialty Start Date End Date Physician, Pcp Unknown PCP - General 12/05/24 documented as of this encounter
--- OUTSIDE RECORDS SUMMARY | 2025-04-26 15:46 | XMS_ITS | Patient Health Record ---
Author Organization [employer] [facility] Address [address] [place] [address] Care Team Providers Care Testing Projects Administrator Name Role Phone DERREK WALLER M.D. Primary Care Provider Unavailable Fani Finney Unavailable [phone] Allergies Allergen (clinical drug ingredient) Drug/Non Drug Allergy documented on EMR Reaction Allergy Type Onset Date Status Bee Venom (uncoded) Unknown Allergy Active PREDNISONE CAUSED EYE PROBLEMS/ WGT GAIN Drug Allergy Active Reason For Referral No Information Medications Medication SIG (Take, Route, Frequency, Duration) Notes Start Date End Date Status Calcium 1 ORAL daily; Durati on: -3 [facility] 03[place]13/2013 Active Multivitamins 1 ORAL daily; Durati on: -3 [facility] 03/13/2013 Active Spiriva HandiHaler 18 MCG 1 Inhalation d aily; Duration: -3 [facility] 03/13/2013 Active ProAir HFA 108 (90 Base) MCG/ACT 2 puffs as needed Inhalation every 4 hrs Active Vitamin D 1000 UNIT 1 tablet Orally Once a day Active Problems Problem Type SNOMED Code ICD Code Onset Dates Problem Status W/U Status Risk Notes Problem Asthma (disorder) (466323831) Asthma, unspecified, unspecified status (493.90) Active confirmed Major Problem Menopausal symptom (42660889) Symptomatic menopausal or female climacteric states (627.2) Active confirmed Major Problem Gynecological examination normal (613539630650651) Routine gynecological examination (V72.31) Active confirmed Major Problem Screening for malignant neoplasm of colon (329572192) Special screening for malignant neoplasms, colon (V76.51) Active confirmed Major Plan Of Treatment No Information Insurance Providers Payer Name Payer Address Payer Phone Subscriber Number Group Number Insured Name Patient Relationship to Insured Coverage Start Date Coverage End Date MEDICARE [address] [employer] [id number] [phone] [id number] LYLY NIX Self - patient is the insured BCBS OF [facility] [address] [place] [phone] [id number] 1 LYLY NIX Self - patient is the insured Medical (General) History Medical History History ICD Code Other asthma J45.998 Menopausal and female climacteric states N95.1 Pneumothorax 512 Surgical History Surgery Date(Month/Year) Right Lung Surgery Tonsillectomy Hospitalization History Reason Date(Month/Year) 2 Vaginal Deliveries See Surgical Hx
--- OUTSIDE RECORDS SUMMARY | 2025-04-26 15:46 | XMS_ITS | Clinical Summary ---
Author Organization [facility] Address [address] [place] [address] Phone Care Team Providers Care Logging Supervisor Name Role Phone Physician, Pcp Unknown Primary Care Provider Charley vailable Social History Tobacco Use Types Packs/Day Years Used Date Smoking Tobacco: Never Assessed Comments Unknown Sex and Gender Information Value Date Recorded Sex Assigned at Not on file Legal Sex Female 1:57 PM EDT Gender Identity Not on file Sexual Orientation Not on file Plan of Treatment Health Maintenance Due Date Last Done Comments DTaP,Tdap,and Td Vaccines (1 - Tdap) 1964 Pneumococcal Vaccine: 50+ Ye ars (1 of 1 - PCV) 1995 Zoster Vaccines (1 of 2) 1995 RSV Immunization Adult Patie nts (1 - 1-dose 75+ series) 2020 Depression Screening 06/21/2024 Falls Risk Assessment 12/06/2024 Medicare Annual Wellness Visit 12/06/2024 Osteoporosis Screening (Bone Density Screening) 12/06/2024 Social Influencers of Health Screening 12/06/2024 COVID-19 Vaccine ( - 2023-2 5 season) 2025 Influenza Vaccine (#1) 2025 HIB Vaccines Aged Out No longer eligi ble based on patient's age to complete this topic HPV Vaccines Aged Out No longer eligi ble based on patient's age to complete this topic Hepatitis A Vaccines Aged Out No long er eligible based on patient's age to complete this topic Hepatitis B Vaccines Aged Out No long er eligible based on patient's age to complete this topic IPV Vaccines Aged Out No longer eligi ble based on patient's age to complete this topic MMR Vaccines Aged Out No longer eligi ble based on patient's age to complete this topic Meningococcal ACWY Vaccine Aged Out N o longer eligible based on patient's age to complete this topic Meningococcal B Vaccine Aged Out No l onger eligible based on patient's age to complete this topic RSV Immunization Patients Un danette 20 months Aged Out No longer eligible b ased on patient's age to complete this topic Varicella Vaccines Aged Out No longer eligible based on patient's age to complete this topic Insurance MEDICARE [facility] Care Teams Logging Supervisor Relationship Specialty Start Date End Date Physician, Pcp Unknown PCP - General 12/05/24
== END 2025-04-26 13:34 | disposition home or self-care (01) ==
PROVIDERS: PCP Internal Medicine; Visit Provider Hospitalist
DX: J96.11 Chronic respiratory failure with hypoxia (principal); J43.2 Centrilobular emphysema; R06.02 Shortness of breath; R91.1 Solitary pulmonary nodule
CPT/HCPCS: 99214; G2211

== ENCOUNTER → 2025-04-26 12:49 | Outpatient (BNVA) | payer MEDICARE, BC, SELFPAY | PROVIDERS: PCP Internal Medicine; Visit Provider Hospitalist | DX: J96.11 Chronic respiratory failure with hypoxia (principal); J43.2 Centrilobular emphysema; R91.1 Solitary pulmonary nodule; Z99.81 Dependence on supplemental oxygen | CPT/HCPCS: 99212 ==